=== PATIENT | male | born 1950 | race Caucasian/White ===

== ENCOUNTER 2022-02-21 11:49 | Emergency (ER) | payer MEDICARE ==
[2022-02-21] MEDS ORDERED: Acetaminophen 500 MG TAB ONE (14:04)
[2022-02-21] MEDS ORDERED: Ketorolac Tromethamine 30 MG/ML VIAL ONE (14:05)
[2022-02-21] MEDS ORDERED: traMADol HCl 50 MG TAB ONE (14:05)
== END 2022-02-21 14:15 | disposition home or self-care (01) ==
LOC: CSHERS 11:49
DX: S42.031A Displaced fracture of lateral end of right clavicle, initial encounter for closed fracture (principal); W19.XXXA Unspecified fall, initial encounter; Y93.89 Activity, other specified
CPT/HCPCS: 96372; J1885